=== PATIENT | female | born 1980 | race Caucasian/White ===

== ENCOUNTER → 2023-11-12 13:32 | Outpatient (REF) | payer BC, SELFPAY | LOC: WDC 13:32 | PROVIDERS: ATTENDING PHYSICIAN Obstetrics & Gynecology; FAMILY PHYSICIAN Physician Assistant Medical | DX: Z12.31 Encounter for screening mammogram for malignant neoplasm of breast (principal) | CPT/HCPCS: 77063; 77067 ==

== ENCOUNTER → 2023-11-19 09:06 | Outpatient (REF) | payer BC, SELFPAY | LOC: WDC 09:06 | PROVIDERS: ATTENDING PHYSICIAN Obstetrics & Gynecology; FAMILY PHYSICIAN Physician Assistant Medical | DX: R92.8 Other abnormal and inconclusive findings on diagnostic imaging of breast (principal) | CPT/HCPCS: 76642 ==

== ENCOUNTER 2024-02-04 18:40 | Emergency (ER) | payer BC, SELFPAY ==
[2024-02-04 18:41] VITALS: BP 145/106
--- NOTE | 2024-02-04 20:52 | ED.GENMED ---
History of Present Illness
General
Chief Complaint: Musculo-Skeletal Complaint
Source: patient and spouse
Time Seen by Provider: 02/04/24 19:09
History of Present Illness
History of Present Illness:
43-year-old female who presents with a deformity to her left middle finger. The patient was walking when she tripped and fell. She thinks she hit a little bit of a stump on the concrete that is therefore nonslip. Patient has a deformity of her
left third digit. No other complaints.
Past History
Past History
ED Past Medical History: Hypothyroidism
ED Past Surgical History: None
Phy Exam
Physical Exam
Physical Exam:
CONSTITUTIONAL Vital signs reviewed, Patient alert and oriented to person, place and time. Well-appearing
HEAD atraumatic, normocephalic.
EYES eyelids normal to inspection, Extraocular muscles intact, Conjunctiva normal, Sclera normal.
NECK normal range of motion, Trachea midline, no jugular venous distention.
RESP no respiratory distress
BACK No obvious deformities
UPPER EXTREMITY clear deformity to the left third digit. There is normal cap refill distally. No other hand injury noted. The deformity originates at the PIP joint of the left third digit.
LOWER EXTREMITY Gross range of motion normal, Gross motor strength normal
NEURO Speech normal, No focal motor deficits include, Chelle coma scale 15, Memory normal, Cranial Nerves intact to screening exam.
SKIN Skin warm, dry, and normal in color.
PSYCHIATRIC Patient oriented to person place and time, Normal affect.
Course
Orders/Labs/Results
Orders:
Orders
02/04/24 18:45
Finger(s)/Thumb 2 View Lt [CR Finger(s)/thumb Min 2 Vw Lt] Urgent
Comment:
Reason For Exam: pain, injury, deformity
02/04/24 19:55
Finger(s)/Thumb 2 View Lt [CR Finger(s)/thumb Min 2 Vw Lt] Urgent
Comment:
Reason For Exam: post reduction
Indicate Which Finger:: Middle Finger
Vital Signs
Initial and Last Documented VS:
Initial Vital Signs
Temp Pulse Resp BP Pulse Ox
98.4 F 104 19 145/106 98
02/04/24 18:41 02/04/24 18:41 02/04/24 18:41 02/04/24 18:41 02/04/24 18:41
Last Documented Vital Signs
Temp Pulse Resp BP Pulse Ox
98.4 F 84 16 143/85 98
02/04/24 18:41 02/04/24 21:06 02/04/24 21:06 02/04/24 21:06 02/04/24 21:06
Procedures
Joint/Fracture Reduction
Left Finger:
Indication for procedure:: Fracture dislocation of the left third digit
Procedure completed by: Dr. Cristobal
If no, reason: Emergency procedure
Anesthesia/sedation: 1% Lidocaine, Added Na bicarb to local and Regional block
Injury was: closed
Further treatement: needs further treatment
Post reduction exam: unstable
Capillary Refill: normal
Normal distal neurovascular exam?: Yes
Additional information:
PIP joint of the left third digit was reduced. Unfortunately upon splinting it was noted that the fracture makes the joint unstable and it is unable to be held in proper position. Repeat x-rays confirm that despite proper splinting, the joint will
not stay reduced.
Digital Block
Location of injection for digital block: head of metacarpals
Indiction for Digital Block: orthopedic procedure
Was sensory exam normal prior to exam?: decreased pin prick
Type of anesthesia: 1% Lidocaine w/o EPI (With 1 cc of bupivacaine)
MDM/Problems Addressed
MDM/Problems Addressed:
Fracture dislocation of the left PIP joint of the third digit
*Radiology
Radiology exam reviewed: preliminary read by ED provider (Fracture dislocation of the left third digit)
*Pulse Oximetry
Patient hypoxic: no
*Critical Care Note
Total Time (30-74mins, 75-104mins- exclusive of procedures): Not Applicable
Data Reviewed
Source: patient and spouse
Patient Management
Discussion with other providers: [place] (Case discussed with Dr. Chen)
Escalation/DeEscalation of care consider admission/obs:
Will not stay reduced due to instability. Case was discussed with orthopedics who will follow it as she does need surgery. Splint applied by me normal cap refill
ED Attending Note
-
Portions of this chart may have been created with voice recognition software.� Occasional wrong word or��sound alike� substitutions may have occurred due to the inherent limitations of voice recognition software.
Discharge Plan
Departure
Patient Disposition: Home (Routine Discharge)
Date of Disposition: 02/04/24
Time of Disposition: 20:57
Patient with high blood pressure during this ER visit?: Yes
Discharge Problem:
Fracture of finger, Closed dislocation of phalanx of hand
Instructions: Finger Fracture ED, BLOOD PRESSURE
Prescriptions:
No Action
thyroid 30 MG tablet
60 mg PO DAILY AT 0700
[id number] [PreNata] 1 EACH tablet,chewable
1 ea PO DAILY
acetaminophen 325 MG tablet
650 mg PO Q4HPRN PRN (Reason: mild pain) 0RF
sennosides-docusate sodium 1 TABLET tablet
1 tab PO DAILYPRN PRN (Reason: constipation) 0RF
ibuprofen 600 MG tablet
400 mg PO Q4HPRN PRN (Reason: moderate pain/cramps) 0RF
thyroid (pork) [[place] Thyroid] 60 MG tablet
60 mg PO DAILY 0RF
Referrals:
Massimo Johns MD [Active] -
Patricia Carney PA-C [Family Provider] -
Activity Restrictions/Additional Instructions:
Please see hand surgery in the next 1 week for follow-up and reevaluation. Please ice your injury and use ibuprofen Tylenol for pain control. Return today for numbness, tingling, discoloration of the finger or any other concerns.
Interventions
Interventions:
*Nursing Disposition Last Done: 02/04/24 21:06
ED-Musculoskeletal Assessment Last Done: 02/04/24 20:04
Discharge Date and Time
Discharge Date/Time: 02/04/24 21:07
Print Language: KHMER
[2024-02-04 21:06] VITALS: BP 143/85
== END 2024-02-04 21:07 | disposition home or self-care (01) ==
LOC: EMR 18:40
PROVIDERS: EMERGENCY PHYSICIAN Emergency Medicine; FAMILY PHYSICIAN Physician Assistant Medical
DX: S62.613A Displaced fracture of proximal phalanx of left middle finger, initial encounter for closed fracture (principal); W01.198A Fall on same level from slipping, tripping and stumbling with subsequent striking against other object, initial encounter; E03.9 Hypothyroidism, unspecified
CPT/HCPCS: 26770; 99283; 73140